=== PATIENT | female | born 1975 | race African-American/Black ===

== ENCOUNTER → 2020-10-15 14:29 | Outpatient (CLI) | payer OTHER, SELFPAY ==
--- NOTE | 2020-10-15 | DI.ECHO.S_ITS ---
Version: 1 Study ID: [id number] [place] [id number] Name: TONY YA Study Date: 10/15/2020, 2: 59 PM : 1975 BP: 150 / 86 mmHg Gender: Female Height: 66 in Age: 45 Years Weight: 215 lb BSA: 2.06 mA? Ordering: MAURICE YAO Referring: MAURICE YAO Clinician: Lindsay Adair Reason For Study: ENCOUNTER FOR GENERAL ADULT EXAMINATION History: Summary Statements Normal sinus rhythm. The left ventricle is normal in size, wall thickness and wall motion. There is normal systolic and diastolic function with EF estimated at 50-55%. Normal chamber sizes. No valvular abnormalities. No prior study available for comparison. Procedure: A two-dimensional transthoracic echocardiogram with color flow and Doppler was performed. There is no prior echocardiogram noted for this patient. The study quality was technically difficult. The patient was in sinus rhythm with heart rates between 73-100 bpm during the exam. Left Ventricle: Diastolic parameters suggest probable normal left ventricular diastolic function and normal filling pressures. The ejection fraction is estimated to be 50-55%. The left ventricle is normal in size. There is mild concentric left ventricular hypertrophy. There is a mild dyssynchronous contraction pattern, consistent with a conduction abnormality. Right Ventricle: The right ventricle is normal in size and function. Atria: There is no Doppler evidence for an interatrial shunt. The left atrial size is normal. Right atrial size is normal. Mitral Valve: There is trace mitral regurgitation. The mitral valve is normal in structure and function. Aortic Valve: No aortic regurgitation is present. There is no aortic valve stenosis. The aortic valve is trileaflet. The aortic valve opens well. Tricuspid Valve: There is trace tricuspid regurgitation. The right ventricular systolic pressure is estimated to be at least 28 mmHg based on an estimated right atrial pressure of 3 mm Hg. The tricuspid valve is normal in structure and function. Pulmonic Valve: There is no pulmonic valvular regurgitation. The pulmonic valve leaflets are thin and pliable; valve motion is normal. Great Vessels: The dimensions of the ascending aorta are normal. The aortic root is normal size. The IVC is of normal diameter and collapses greater than 50% with a sniff. This suggests a low right atrial pressure of 3 mm Hg. Pericardium/ Pleura: There is no pericardial effusion. There is no pleural effusion. 2D and M-Mode Measurements and Calculations LVIDd: 4.5 cm AoV Openin.82 cm LVIDs: 3.2 cm LVOT diam: 1.97 cm IVSd: 1.09 cm Ao root diam: 2.39 cm LVPWd: 1.03 cm asc Aorta Diam: 2.6 cm LV mehta. diameter/BSA (cm/m^2): 2.18 Ao Arch Diam (Prox Trans): 2.47 cm LV sys. diameter/BSA (cm/m^2): 1.55 EPSS: 0.40 cm RVD1 (basal): 3.0 cm IVC diam: 1.38 cm TAPSE: 1.90 cm LA A4 area: 15.0 label operator? RA area: 12.5 label operator? LA A2 area: 21.1 label operator? RA long axis: 4.0 cm LA length (vol): 4.6 cm RA vol: 33.5 ml LA vol: 57.7 ml RA : 16.3 ml/mA? LA vol index: 28.0 ml/mA? Doppler Measurements and Calculations Ao V2 max: 159.6 cm/sec LVOT Max Himanshu: 97.8 cm/sec Ao V2 mean: 103.2 cm/sec LV V1 max P.8 mmHg Ao V2 VTI: 25.6 cm LV V1 VTI: 16.7 cm Ao max P.2 mmHg Ao mean P.0 mmHg LEANN(I,D): 2.00 label operator? LEANN(V,D): 1.87 label operator? LEANN indexed to BSA (cm^2/m^2): 0.97 sev ratio: 0.65 MV E max himanshu: 102.1 cm/sec MV dec time: 0.17 sec MV A max himanshu: 93.7 cm/sec MV E/A: 1.09 Med Peak E' Himanshu: 11.9 cm/sec Lat Peak E' Himanshu: 17.7 cm/sec E/e' average: 7.2 TR max himanshu: 249.0 cm/sec PA mean P.4 mmHg TR max P.8 mmHg PA V2 max: 126.1 cm/sec Electronically signed by: Silvia Barraza M.D. 10/16/2020, 12: 43 AM
== END ==
DX: Z00.00 Encounter for general adult medical examination without abnormal findings (principal)
CPT/HCPCS: 93306